=== PATIENT | female | born 1995 | race Hispanic/Latino ===

== ENCOUNTER 2019-02-03 14:05 | Inpatient (IN) | payer OTHER ==
--- NOTE | 2019-02-03 15:04 | History and Physical Report ---
History of Present Illness Date of examination: 02/03/19 Date of admission: 02/03/19 Chief complaint: SIUP at 20 weeks gestation with hyperemesis. History of present illness: Patient is a 23 year old , LMP 09/13/18, EDC 06/20/19 at 20 weeks gestation who presented to triage complaining of having persistent nausea and vomiting and inability to tolerate PO intake for 3 days. She reports movement. She has been using zofran at home which is not helping. Past History Past Medical History: other (bipolar, depression.) Past Surgical History: appendectomy Family/Genetic History: none Social history: no significant social history - Obstetrical History Expected Date of Delivery: 06/20/19 Actual Gestation: 20 Week(s) 3 Day(s) : 1 Medications and Allergies Allergies Allergy/AdvReac Type Severity Reaction Status Date / Time No Known Allergies Allergy Verified 02/03/19 14:14 - Vital Signs Vital signs: Vital Signs Pulse BP 108 H 121/82 02/03/19 14:29 02/03/19 14:29 Temp Pulse Resp BP Pulse Ox 98.4 F 108 H 20 121/82 02/03/19 14:33 02/03/19 14:33 02/03/19 14:33 02/03/19 14:33 - Physical Exam Cardiovascular: Normal S1, Normal S2 Lungs: Positive: Clear to auscultation Vulva: both: normal Adnexa: both: normal Deep Tendon Reflex Grade: Normal +2 - Obstetrical FHR: category 1 Uterine Contraction Monitor Mode: External Results All other labs normal. Assessment and Plan - Patient Problems (1) 20 weeks gestation of Current Visit: Yes Status: Acute (2) Hyperemesis gravidarum Current Visit: Yes Status: Acute Plan to address problem: CBC, chem, TSH/Free T4, amylase, lipase. OB Sonogram. IV fluid. (3) Morbid obesity Current Visit: Yes Status: Acute
[2019-02-03] MEDS ORDERED: TYLENOL PO PRN (15:30)
[2019-02-03] MEDS ORDERED: COLACE PO PRN (15:30)
[2019-02-03] MEDS: LACTATED RINGERS 1,000 ML IV SCH ×2 (15:31→23:03)
[2019-02-03] MEDS: ZOFRAN IV PRN ×2 (15:35→22:57)
[2019-02-03 18:00] LABS: Basophils % (Auto) 0.1 % (0.0-1.8); Eosinophils % (Auto) 0.1 % (0.0-4.3); Hematocrit 39.6 % (30.3-42.9); Hemoglobin 13.5 gm/dl (10.1-14.3); Lymphocytes # (Auto) 1.4 K/mm3 (1.2-5.4); Lymphocytes % (Auto) 8.3 % (13.4-35.0); Mean Corpuscular HGB Conc 34 % (30-34); Mean Corpuscular Volume 92 fl (79-97); Monocytes # (Auto) 0.3 K/mm3 (0.0-0.8); Monocytes % (Auto) 1.7 % (0.0-7.3); Platelet Count 370 K/mm3 (140-440)
[2019-02-03 18:23] LABS: Alanine Aminotransferase 17 units/L (7-56); Albumin 3.6 g/dL (3.9-5); BUN/Creatinine Ratio 10; Blood Urea Nitrogen 4 mg/dL (7-17); Calcium 9.2 mg/dL (8.4-10.2); Hemolysis Index 13
[2019-02-03 18:58] LABS: Bacteria,Urine 2+ /HPF (Negative); Bilirubin,Urine NEG (Negative); Blood,Urine NEG (Negative); Color,Urine Yellow (Yellow); Mucus,Urine 3+ /HPF; Urobilinogen,Urine < 2.0 mg/dL (<2.0)
[2019-02-03] MEDS ORDERED: PEPCID IV SCH (19:00)
[2019-02-04] MEDS: PEPCID IV SCH ×2 (01:40→10:07)
[2019-02-04] MEDS: LACTATED RINGERS 1,000 ML IV SCH (06:13)
[2019-02-04] MEDS: ZOFRAN IV PRN (07:56)
[2019-02-04] MEDS ORDERED: PRENATAL VITAMIN PO SCH (10:00)
--- NOTE | 2019-02-04 11:11 | Progress Note ---
Assessment and Plan - Patient Problems (1) 20 weeks gestation of Onset Date: 02/04/19 Current Visit: Yes Status: Acute Plan to address problem: A: IUP @ 20 4/7 weeks Hyperemesis - improved Morbid Obesity P: Continue present management Possible d/c home after dinner (2) Hyperemesis gravidarum Onset Date: 02/04/19 Current Visit: Yes Status: Acute (3) Morbid obesity Onset Date: 02/04/19 Current Visit: Yes Status: Acute Subjective - Subjective Date of service: 02/04/19 Principal diagnosis: IUP @ 20 4/7 weeks; Hyperemesis Interval history: Patient is a 23 year old WF , LMP 09/13/18, EDC 06/20/19 at 20 1/7 weeks gestation who presented to triage complaining of having persistent nausea and vomiting and inability to tolerate PO intake for 4 days. She reports movement. She has received IV Zofran and IV Pepcid and now tolerating a reg diet, and would like to go home. Patient reports: movement normal, no new complaints, no loss of fluid, no vaginal bleeding, no contractions Objective - Vital Signs Vital Signs: Vital Signs - 12hr 02/04/19 02/04/19 02/04/19 00:26 07:54 07:59 Temperature 98.8 F 99.1 F Pulse Rate 81 79 Respiratory 18 20 Rate Blood Pressure 138/64 139/67 - Exam Abdomen: Present: normal appearance, soft Uterus: Present: normal FHR: category 1 Uterine Contraction Monitor Mode: External Uterine Contraction Pattern: Absent - Labs Labs: Abnormal Labs 02/03/19 02/03/19 02/03/19 16:51 16:51 16:51 WBC 16.7 H RDW 13.0 L Lymph % (Auto) 8.3 L Seg Neutrophils % 89.8 H Seg Neutrophils # 15.0 H BUN 4 L Creatinine 0.4 L Glucose 105 H Albumin 3.6 L Amylase 25 L Lipase Urine pH Urine WBC (Auto) U Epithel Cells (Auto) 02/03/19 02/03/19 16:51 18:07 WBC RDW Lymph % (Auto) Seg Neutrophils % Seg Neutrophils # BUN Creatinine Glucose Albumin Amylase Lipase 10 L Urine pH 9.0 H Urine WBC (Auto) 8.0 H U Epithel Cells (Auto) 25.0 H Laboratory Results - last 24 hr 02/03/19 02/03/19 02/03/19 16:51 16:51 16:51 WBC 16.7 H RBC 4.30 Hgb 13.5 Hct 39.6 MCV 92 MCH 32 MCHC 34 RDW 13.0 L Plt Count 370 Lymph % (Auto) 8.3 L Mclean % (Auto) 1.7 Eos % (Auto) 0.1 Baso % (Auto) 0.1 Lymph # 1.4 Mclean # 0.3 Eos # 0.0 Baso # 0.0 Seg Neutrophils % 89.8 H Seg Neutrophils # 15.0 H Sodium 139 Potassium 3.6 Chloride 101.3 Carbon Dioxide 22 Anion Gap 19 BUN 4 L Creatinine 0.4 L Estimated GFR > 60 BUN/Creatinine Ratio 10 Glucose 105 H Calcium 9.2 Total Bilirubin 0.20 AST 16 ALT 17 Alkaline Phosphatase 60 Total Protein 7.1 Albumin 3.6 L Albumin/Globulin Ratio 1.0 Amylase 25 L Lipase TSH Free T4 Urine Color Urine Turbidity Urine pH Ur Specific Marston Urine Protein Urine Glucose (UA) Urine Ketones Urine Blood Urine Nitrite Urine Bilirubin Urine Urobilinogen Ur Leukocyte Esterase Urine WBC (Auto) Urine RBC (Auto) U Epithel Cells (Auto) Urine Bacteria (Auto) Urine Mucus 02/03/19 02/03/19 02/03/19 16:51 17:00 17:00 WBC RBC Hgb Hct MCV MCH MCHC RDW Plt Count Lymph % (Auto) Mclean % (Auto) Eos % (Auto) Baso % (Auto) Lymph # Mclean # Eos # Baso # Seg Neutrophils % Seg Neutrophils # Sodium Potassium Chloride Carbon Dioxide Anion Gap BUN Creatinine Estimated GFR BUN/Creatinine Ratio Glucose Calcium Total Bilirubin AST ALT Alkaline Phosphatase Total Protein Albumin Albumin/Globulin Ratio Amylase Lipase 10 L TSH 0.493 Free T4 1.37 Urine Color Urine Turbidity Urine pH Ur Specific Marston Urine Protein Urine Glucose (UA) Urine Ketones Urine Blood Urine Nitrite Urine Bilirubin Urine Urobilinogen Ur Leukocyte Esterase Urine WBC (Auto) Urine RBC (Auto) U Epithel Cells (Auto) Urine Bacteria (Auto) Urine Mucus 02/03/19 02/04/19 18:07 09:45 WBC RBC Hgb Hct MCV MCH MCHC RDW Plt Count Lymph % (Auto) Mclean % (Auto) Eos % (Auto) Baso % (Auto) Lymph # Mclean # Eos # Baso # Seg Neutrophils % Seg Neutrophils # Sodium Potassium Chloride Carbon Dioxide Anion Gap BUN Creatinine Estimated GFR BUN/Creatinine Ratio Glucose Calcium Total Bilirubin AST ALT Alkaline Phosphatase Total Protein Albumin Albumin/Globulin Ratio Amylase Lipase TSH Free T4 Urine Color Yellow Urine Turbidity Cloudy Urine pH 9.0 H Ur Specific Marston 1.026 Urine Protein 100 mg/dl Urine Glucose (UA) Neg Urine Ketones 80 80 Urine Blood Neg Urine Nitrite Neg Urine Bilirubin Neg Urine Urobilinogen < 2.0 Ur Leukocyte Esterase Mod Urine WBC (Auto) 8.0 H Urine RBC (Auto) 6.0 U Epithel Cells (Auto) 25.0 H Urine Bacteria (Auto) 2+ Urine Mucus 3+
[2019-02-04 15:35] VITALS: BP 129/63
--- NOTE | 2019-02-04 15:43 | Discharge Summary ---
Providers - Providers Date of Admission: 02/03/19 19:36 Date of discharge: 02/04/19 Attending physician: SAPNA LOONEY MD Primary care physician: SAPNA LOONEY MD Hospitalization Reason for admission: IUP - , other (IUP @ 20 4/7 weeks; Hyperemesis) Other procedures: none complications: none Discharge diagnosis: other (IUP @ 20 4/7 weeks; Hyperemesis) Hospital course: Patient is a 23 year old WF , LMP 09/13/18, EDC 06/20/19 at 20 4/7 weeks gestation who presented to triage complaining of having persistent nausea and vomiting and inability to tolerate PO intake for 4 days. She reported good movement. She was admitted and received IV Zofran and IV Pepcid and now tolerating a reg diet, and would like to go home. She will therefore be discharged to home with plans to follow up in the office on Friday. Condition at discharge: Good Disposition: [id number] TO HOME OR SELFCARE - Discharge Diagnoses (1) 20 weeks gestation of Status: Acute (2) Hyperemesis gravidarum Status: Resolved (3) Morbid obesity Status: Chronic Plan - Discharge Medications Prescriptions: Ranitidine HCl [Zantac] 150 mg PO DAILY #30 tablet Ondansetron (Nf) [Zofran TAB] 8 mg PO TID PRN #30 tablet PRN Reason: Nausea And Vomiting - Provider Discharge Summary Activity: routine, no sex for 6 weeks, no heavy lifting 4 weeks, no strenuous exercise Diet: routine Instructions: routine Additional instructions: [] Smoking cessation referral if applicable(refer to patient education folder for contact #) [] Refer to [facility] Booklet Call your doctor immediately for: * Fever > 100.5 * Heavy vaginal bleeding ( >1 pad per hour) * Severe persistent headache * Shortness of breath * Reddened, hot, painful area to leg or breast * Drainage or odor from incision. * Keep incision clean and dry at all times and follow doctor's instructions regarding bathing/showering - Follow up plan Follow up: SAPNA LOONEY MD [Primary Care Provider] - 48 Hours
== END 2019-02-04 15:55 | disposition home or self-care (01) | DRG 781 ==
LOC: TRG 14:05 → LD 19:36 → TRG 19:36
PROVIDERS: ADMIT Obstetrics & Gynecology; ATTEND Obstetrics & Gynecology
DX: O21.0 Mild hyperemesis gravidarum (principal); O99.342 Other mental disorders complicating pregnancy, second trimester; O99.212 Obesity complicating pregnancy, second trimester; E66.01 Morbid (severe) obesity due to excess calories; F31.9 Bipolar disorder, unspecified; O60.02 Preterm labor without delivery, second trimester; Z90.49 Acquired absence of other specified parts of digestive tract; Z3A.20 20 weeks gestation of pregnancy
CPT/HCPCS: 36415; 80053; 81001; 82010; 82150; 83690; 84439; 84443; 85025; 96360; 96361; 96374; G0378; J2405; J7120

== ENCOUNTER 2019-04-28 18:04 | Outpatient (CLI) | payer OTHER ==
[2019-04-28] MEDS ORDERED: LACTATED RINGERS 500 ML IV ONE (18:33)
[2019-04-28] MEDS ORDERED: LACTATED RINGERS 1,000 ML IV ONE (19:10)
[2019-04-28 19:12] LABS: Bilirubin,Urine NEG (Negative); Blood,Urine NEG (Negative); Color,Urine Yellow (Yellow); Mucus,Urine FEW /HPF; Protein,Urine <15 mg/dL mg/dL (Negative); Urobilinogen,Urine < 2.0 mg/dL (<2.0)
[2019-04-28] MEDS ORDERED: NON-FORMULARY EACH (Ondansetron (Nf) 8 MG) PO PRN (19:52)
[2019-04-28] MEDS ORDERED: ONDANSETRON 8 MG ODT TAB PO PRN (20:00)
[2019-04-28] MEDS ORDERED: FAMOTIDINE 20 MG TAB PO SCH (20:00)
[2019-04-28 20:46] VITALS: BP 124/64
[2019-04-28] MEDS ORDERED: FAMOTIDINE 20 MG TAB PO ONE (21:00)
== END 2019-04-28 21:13 | disposition home or self-care (01) ==
LOC: TRG 18:04
PROVIDERS: ATTEND Obstetrics & Gynecology
DX: O26.893 Other specified pregnancy related conditions, third trimester (principal); R25.2 Cramp and spasm; R12 Heartburn; O60.03 Preterm labor without delivery, third trimester; O99.343 Other mental disorders complicating pregnancy, third trimester; F41.9 Anxiety disorder, unspecified; F31.9 Bipolar disorder, unspecified; Z90.49 Acquired absence of other specified parts of digestive tract; Z3A.32 32 weeks gestation of pregnancy
CPT/HCPCS: 81001; J7120; 59025; Q0162